=== PATIENT | female | born 1955 ===

== ENCOUNTER 2024-12-07 01:41 | Outpatient (CLI) | payer MEDICARE, SELFPAY ==
--- NOTE | 2024-12-07 | DI.RAD_ITS ---
Exam(s) RF BARIUM SWALLOW EXAM: RF BARIUM SWALLOW CLINICAL HISTORY: DYSPHAGIA R13.10 OROPHARYNGEAL AND ESOPHAGEAL DYSPHAGIA TECHNIQUE: 2D and realtime digital imaging was performed. CONTRAST MATERIAL: Oral barium Oral water soluble contrast was administered. COMPARISON: No exams were available for comparison FINDINGS: CHEST X-RAY: The heart and pulmonary vasculature are within normal limits. The lungs are clear. No pleural effusion or pneumothorax is present. There is a left convex thoracolumbar scoliosis. ESOPHAGRAM: The esophagus is patent with no evidence for erosions, fold thickening, strictures, or masses. With regards to the motility, there is a normal primary stripping wave. The patient swallowed a barium tablet without complication. There is a small hiatal hernia. IMPRESSION: There is a small hiatal hernia. No gastroesophageal reflux is noted. RADIATION DOSE DELIVERED: carlos Cash=20.5 mGy
--- NOTE | 2024-12-07 | DI.RAD_ITS ---
Exam(s) RF MODIFIED SPEECH BA SWALLOW TECHNIQUE: Modified barium swallow was performed in conjunction with speech pathology. CONTRAST MATERIAL: Oral barium contrast was administered. COMPARISON: No exams were available for comparison FINDINGS: Note that this is not a dedicated esophagram, distal esophagus not evaluated. There is no evidence of aspiration or penetration of thick or thin liquids, barium pudding or barium coated cookie. Speech pathology report to follow. . . . IMPRESSION: No evidence of aspiration or penetration. RADIATION DOSE DELIVERED: carlos Cash=1.54 mGy
[2024-12-07] MEDS: Barium Sulfate 700 MG TAB PO ×2 (15:03→15:20)
[2024-12-07] MEDS: Barium Sulfate 81% w/w for Oral Suspension 148 GM BTL PO (15:09)
[2024-12-07] MEDS: Barium Sulfate Oral Paste 40% W/V 230 ML TUBE PO (15:10)
[2024-12-07] MEDS: Barium Sulfate 40% W/V 240 ML BTL PO (15:11)
[2024-12-07] MEDS: Barium Sulfate 98% W/W 140 ML BTL PO (15:24)
[2024-12-07] MEDS: Barium Sulfate 60% W/V 355 ML BTL PO (15:25)
--- NOTE | 2024-12-07 15:26 | ST.MBS_ITS ---
Date of Service Date of service: 12/07/24 Time of Service: 14:30 Modified Barium Swallow Study Findings: Video fluoroscopic Swallowing Evaluation (VFSE) / Modified Barium Swallow Study (MBSS) Speech Language Pathology Report Patient referred for VFSE/MBSS from Dr. Calix given HPI as below. HPI & Patient report of function: Patient is a 63 year old F followed by Eder Calix (surgeon) in [place] for nighttime cough and dysphagia to solids, with presence of small hiatal hernia seen on imaging. MBSS, Regular Barium Swallow, and EGD were all ordered as part of workup. Per surgeon notes, there was suspicion of oral-pharyngeal dysphagia with possible LPR component. Patient reports coughing/gagging as well as pharyngeal stasis with dry foods such as bread, chicken, and feels that these will stick in her throat. She also reports difficulty with taking certain pills and has to cut them. She denies coughing or sensation of aspiration with liquids. IMPRESSIONS: Swallow safety is preserved; swallow efficiency is mildly impaired largely due to piecemeal deglutition and suspected esophageal component. There was slow puree clearance evident of proximal esophageal segment, but no further esophageal survey/visualization given patient scheduled to complete regular barium esophagram following completion of this exam. Oral pharyngeal function is largely safe/WFL. Characterized by the physiologic deficits as outlined below. Patient appears to be at low risk for potential aspiration PNA and/or pulmonary compromise and low risk for malnutrition, low risk for dehydration. Diet modification is not indicated except for comfort/QOL; non-oral nutrition is not indicated. RECOMMENDATIONS: Diet Texture Recommendation:? IDDSI LEVEL SOLIDS 7-Regular Solids LIQUIDS 0-Thin Liquids Please see further details at?[email or web address] MEDICATIONS Whole with 4-Puree or TOLERATED Diet texture modification is per patient's preference; please adjust diet textures at patient's discretion & collaboration with care team. Do not alter medications (e.g., cut)? without advice from your MD or pharmacist. Risk Management Strategies:? Behavioral reflux precautions, including upright position during + 90 mins after meals. Alternate solids/liquids as able for esophageal clearance. Control risk factors for aspiration pneumonia via (a) thorough oral hygiene & (b) maintaining physical mobility as tolerated PLAN: F/U with referring provider. Therapy: If further workup indicates no esophageal/GERD/GI component, she may benefit from speech/voice therapy to address potential muscle tension dysphagia in the absence of other underlying etiology. ----- OBJECTIVE Videofluoroscopic Swallow Evaluation (VFSE/MBSS) was conducted in the lateral projection by Speech-Language Pathologist, in collaboration with Radiologist, to evaluate oropharyngeal swallow function. Anatomic view under fluoroscopy: WFL PO Barium Contrast Trials Oral barium water-soluble contrast was administered as follows: IDDSI Level 0 Varibar thin liquid (40% w/v) IDDSI Level 4 Varibar pudding/pureed/extremely thick (40% w/v) IDDSI Level 7 Regular Solid: 1/2 shoaib cracker coated in 3 mL Varibar pudding 13 mm barium tablet taken with Thin Liquids. MBSImP Component Scores: COMPONENT Scale SCORE 1 Lip closure (0-4) 0 Resulted in no labial escape 2 Hold Position (0-3) 0 Maintained a cohesive bolus between tongue to palatal seal 3 Bolus Preparation (0-4) 0 Resulted in timely and efficient chewing and mashi ng 4 Bolus Transport (0-4) 1 Demonstrated delayed initiation of tongue motion 5 Oral Residue (0-4) 1 Was a trace, lining oral structures 6 Swallow Initiation (0-4) 2 Occurred as bolus head at posterior laryngeal surface of epiglottis 7 Soft Palate Elevation (0-4) 1 Allowed a trace column of contrast or air between soft palate and pharyngeal wall 8 Laryngeal Elevation (0-3) 0 Demonstrated complete superior movement of thyro id cartilage with complete approximation of arytenoids to epiglottic petiole 9 Anterior Hyoid Motion (0-2) 0 Demonstrated complete anterior movement 10 Epiglottic Movement (0-2) 0 Resulted in complete inversion 11 Laryngeal Closure (0-2) 0 Was complete with no air or contrast in laryngeal vestibule 12 Pharyngeal Stripping Wave (0-2) 0 Was present and complete 13 Pharyngeal Contraction (0-3) NA 14 PES Opening (0-3) 0 Was completely distended and complete duration with no obstruction of flow 15 Tongue Base Retraction (0-4) 0 Allowed no contrast between the tongue base and posterior pharyngeal wall 16 Pharyngeal Residue (0-4) 1 Showed a trace within or on pharyngeal structure s 17 Esophageal Clearance (0-4) NA Results: COMPONENT Scale SCORE 1 Oral Score (0-18) 3 2 Pharyngeal Score (0-29) 1 3 Esophageal Score (0-4) 0 Penetration-Aspiration Scale: COMPONENT Scale SCORE 1 Thin liquid (1-8) 1 Contrast did not enter the airway 2 [place] thick (1-8) NA 3 Honey thick (1-8) NA 4 Pudding thick (1-8) 1 Contrast did not enter the airway 5 Cookie (1-8) 1 Contrast did not enter the airway [place] Pharyngeal Residue Severity Rating Scale (YPRS) (Teri, et al, 2015) Val[place]cula Residue Severity I None 0% No residue Pyriform Sinus Residue Severity I None 0% No residue II Trace 1-5% Trace coating of the mucosa Trialed Compensatory Strategies & Outcome: Maneuvers Successful (+) Unsuccessful (-) Postures Successful (+) Unsuccessful (-) 3 second Preparatory Set? ?+/- Chin Tuck Posture? ? Cough? ? Posterior Head tilt? Reflexive? Cued? Throat Clear? ? Head Tilt to? Reflexive? Left? Cued? Right? ? Saliva swallow? ? Head Turn/Rotate to? ? Supraglottic Swallow? Left? ? Super-supraglottic Swallow? Right? ? Bolus Modifications Successful (+) Unsuccessful (-) Delivery/Alternating Consistencies ? Follow with Liquid Wash ? Follow with Solid Bolus? Delivery/Via Straw? ? Reduced Volume? ?+/- Reduced Rate of Intake? ?+/- Increased Viscosity? ? Other:?? ? Thank you for allowing us to take part in this patient's care. Please feel free to contact the [facility] Speech Language Pathology Department with any questions/concerns.
== END 2024-12-07 02:01 ==
PROVIDERS: Visit Provider Surgery
DX: R13.10 Dysphagia, unspecified (principal)
CPT/HCPCS: 92526; 74221; J3490